=== PATIENT | male | born 1995 | race Caucasian/White ===

== ENCOUNTER 2023-01-03 14:16 | Emergency (ER) | payer MEDICAID ==
[~2023-01-03] VITALS: Ht 180.3 cm; Wt 74.0 kg
[2023-01-03 14:41] VITALS: BP 136/82; PULSE 77; RESP 20; TEMP 98.2; O2SAT 99
== END 2023-01-03 20:05 | disposition home or self-care (01) ==
LOC: ER 14:16
DX: S83.91XA Sprain of unspecified site of right knee, initial encounter (principal); S63.502A Unspecified sprain of left wrist, initial encounter; W18.39XA Other fall on same level, initial encounter; Y93.89 Activity, other specified; Y92.89 Other specified places as the place of occurrence of the external cause; Y99.8 Other external cause status
CPT/HCPCS: 73110; 73562; 99284